=== PATIENT | male | born 1990 | race American Indian/Alaskan Native ===

== ENCOUNTER 2019-05-09 09:01 | Emergency (ER) | payer OTHER ==
[2019-05-09] MEDS ORDERED: IBUPROFEN 800 MG TAB PO ONE (10:30)
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
[2019-05-09 11:23] VITALS: BP 131/70
== END 2019-05-09 11:22 | disposition home or self-care (01) ==
LOC: ED 09:01
DX: S39.012A Strain of muscle, fascia and tendon of lower back, initial encounter (principal); Z79.899 Other long term (current) drug therapy; V49.49XA Driver injured in collision with other motor vehicles in traffic accident, initial encounter; Y93.89 Activity, other specified; Y92.410 Unspecified street and highway as the place of occurrence of the external cause; Y99.8 Other external cause status
CPT/HCPCS: 72100